=== PATIENT | female | born 1940 | race American Indian/Alaskan Native ===

== ENCOUNTER 2018-09-28 11:50 | Emergency (ER) | payer MEDICARE, OTHER ==
[~2018-09-28] VITALS: Ht 157.5 cm; Wt 73.9 kg
[~2018-09-28 11:50] MED LIST: ATORVASTATIN CA20 MG PO; CLONAZEPAM1 MG PO; COMPOUND TOP; ETODOLAC400 MG PO; FAMOTIDINE20 MG PO; GABAPENTIN100 MG PO; GNP B-COMPLEX1 EACH PO; IBUPROFEN400 MG PO; LEVOTHYROXINE88 MCG PO; MAXZIDE 37.5 M1 EACH PO; MELOXICAM7.5 MG PO; MIRTAZAPINE15 MG PO; QUETIAPINE FUMA50 MG PO; ULTRAM 50MG50 MG PO
--- OUTSIDE RECORDS SUMMARY | 2018-09-28 11:53 | XMS REPORT | Summary of Care ---
Author Author [facility] [place] Organization [facility] [place] Address Unknown Phone Unavailable Encounter [facility] Encntr_alisha(FIN) [id number] Date(s): 07/08/15 - 07/08/15 [facility] [place] [address] [place], [place] [address] [phone] Discharge Disposition: Home Attending Physician: Eliel Valerio MD Vital Signs No data available for this section Problem List Condition Effective Dates Status Health Status Informant Cervical 04/28/15 Active radiculopathy1 Cervical spondylosis 04/26/15 Active without myelopathy2 Lumbar spondylosis3 04/26/15 Active 1Data migrated from [employer] on 06/21/15. 2Data migrated from [employer] on 06/21/15. 3Data migrated from [employer] on 06/21/15. Allergies, Adverse Reactions, Alerts Substance Reaction Severity Status Keflex Active NKDA Active topiramate1 Active 1Data migrated from [employer] on 06/20/15. Originally documented as TOPAMAX. Medications No data available for this section Results No data available for this section Immunizations No data available for this section Procedures No data available for this section Social History No data available for this section Assessment and Plan No data available for this section
--- OUTSIDE RECORDS SUMMARY | 2018-09-28 11:53 | XMS REPORT | Summary of Care ---
Author Organization Unknown Address Unknown Phone Unavailable Encounter [facility] Encntr_nyasia([facility]) [id number] Date(s): 01/10/15 - 01/10/15 [facility] Outpatient Imaging - [address] [address] [phone] Discharge Disposition: Home Physician Attending: Physician, Non Associated MD Vital Signs No data available for this section Problem List No data available for this section Allergies, Adverse Reactions, Alerts Substance Reaction Severity Status Keflex Active NKDA Active Medications No data available for this section Results No data available for this section Immunizations No data available for this section Procedures No data available for this section Social History No data available for this section Assessment and Plan No data available for this section
--- OUTSIDE RECORDS SUMMARY | 2018-09-28 11:53 | XMS REPORT | CCD ---
Author Author Auto Generated Organization [facility] Address Unknown Phone Unavailable Care Team Providers Care Refinery Process Engineer Name Role Phone Deepak Hardeno Drew RP Allergies, Adverse Reactions, Alerts Substance Reaction Status Keflex Active NKDA Active Medications Medication Instructions Start Date End Date Status pneumococcal 0.5 ml, Route: IM, Drug Form: INJ, 01/26/2010 01/26/2010 Completed 23-valent vaccine Start date: 01/26/10 9:00:00, Stop date: 01/26/10 9:00:00 Immunizations Vaccine Date Status pneumococcal 23-valent vaccine 01/26/2010 Not Done Vital Signs Most recent to oldest [Reference Range]: 1 Height 153.67 cm (07/18/2012 09:45:00) Weight 97.273 kg (07/18/2012 09:45:00)
--- OUTSIDE RECORDS SUMMARY | 2018-09-28 11:53 | XMS REPORT | CCD ---
Author Author Auto Generated Organization [facility] Address Unknown Phone Unavailable Care Team Providers Care Outdoor Emergency Care Technician Name Role Phone Deepak Hardentere Russell RP Allergies, Adverse Reactions, Alerts Substance Reaction Status NKDA Active Medications Medication Instructions Start Date End Date Status pneumococcal 0.5 ml, Route: IM, Drug Form: INJ, 01/26/2010 01/26/2010 Completed 23-valent vaccine Start date: 01/26/10 9:00:00, Stop date: 01/26/10 9:00:00 Immunizations Vaccine Date Status pneumococcal 23-valent vaccine 01/26/2010 Not Done Vital Signs Most recent to oldest [Reference Range]: 1 Height 157.48 cm (10/11/2011 10:44:00) Weight 72.727 kg (10/11/2011 10:44:00)
--- OUTSIDE RECORDS SUMMARY | 2018-09-28 11:53 | XMS REPORT | Continuity of Care Document ---
Author Author Anya acosta [facility], [place] Interface Address Unknown Phone Unavailable Problems Problem Status Onset Date Classification Date Reported Comments Source Pain in left hip 01/11/2018 04/14/2018 [place]OCELYN [place] LUMBAR SPONDYLOSIS Active 02/02/2016 [facility] UNK Active 08/03/2015 [facility] V76.12 - SCREEN MAMMOGRA Active 06/28/2015 OP[facility] [place] Cervical radiculopathy<sup>1</sup> Active 04/28/2015 Problem 04/14/2018 Data migrated from Toptal on 06/21/15. [facility] Cervical spondylosis without myelopathy<sup>2</sup> Active 04/26/2015 Problem 04/14/2018 Data migrated from Doorbot[employer] on 06/21/15. [facility] Lumbar spondylosis<sup>3</sup> Active 04/26/2015 Problem 04/14/2018 Data migrated from Toptal on 06/21/15. [facility] 723.[facility] - BRACHIAL NEURIT Active 12/28/2014 [place]ELYN [place] RADICULOPATHY Active 06/08/2013 [facility] CERVICAL AND LUMBAR RADICULOPATHY Active 07/14/2012 [facility] CERVICAL AND LUMBAR RADIC Active 07/11/2012 [facility] 723.4 724.4 Active 10/28/2010 [facility] CERVICAL LUMBAR RADICULOPATHY Active 10/28/2010 [facility] Anxiety Active Problem 04/14/2018 [facility] COPD Active Problem 04/14/2018 [facility] HTN - Hypertension Active Problem 04/14/2018 [facility] Hypothyroid Active Problem 04/14/2018 [facility] Neck pain Active Problem 04/14/2018 [facility] Ob[facility] Active Problem 04/14/2018 [facility] Degeneration of cervical intervertebral disc Active Problem 04/16/2017 Eric Benoit Cervical spondylosis without myelopathy Active Problem 04/16/2017 Eric Benoit Brachial neuritis or radiculitis nos. Active Problem 04/16/2017 Eric Benoit Long-term use of other medications - High Risk Active Problem 04/16/2017 Eric Benoit Lumbar radiculopathy Active Problem 04/16/2017 Eric Benoit Degeneration of cervical intervertebral disc Active Problem 04/16/2017 Eric Benoit Cervical radiculopathy Active Problem 04/16/2017 Eric Benoit Chronic pain syndrome Active Problem 04/16/2017 Eric Benoit Postlaminectomy syndrome, cervical region Active Problem 04/16/2017 Eric Benoit Cervical spondylosis without myelopathy Active Problem 04/16/2017 Eric Benoit Spondylosis without myelopathy or radiculopathy, cervical region Active Problem 04/16/2017 Eric Benoit Brachial neuritis Active Diagnosis 11/16/2016 Eric Benoit BRACHIAL NEURITIS NOS Active [facility] LUMBOSACRAL NEURITIS NOS Active [facility] SPIN STEN,LUMBR WO DANIEL Active [facility] CERVICAL RADICULOPATHY Active [facility] OTH SPONDYLOSIS W RADICULOPATHY, SACR/SA Active [facility] Medications Medication Details Route Status Patient Instructions Ordering Provider Order Date Source Acetaminophen-Codeine #3 1 tablet as needed Orally Active 300- 30 MG Orally daily PRN Moraima 11/15/2016 Eric Benoit Tramadol HCl as directed Orally Active 50 MG Orally BID PRN Moraima 11/15/2016 Eric Benoit Calcium Chloride 0.0014 MEQ/ML / Potassium Chloride 0.004 MEQ/ML / Sodium Chloride 0.103 MEQ/ML / Sodium Lactate 0.028 MEQ/ML Injectable Solution 1,000 mL, Rate: 25 ml/hr, Infuse over: 40 hr, Route: IV, Dosing Weight 77.364 kg, Total Volume: 1,000, Start date: 08/05/15 8:49:00, Duration: 30 day, Stop date: 09/04/15 8:48:00 Inactive 08/05/2015 [facility] clonazePAM 1 mg oral tablet 1 mg=1 tab, PO, BID, # 60 tab, 0 Refill(s) Active 08/04/2015 [facility] levothyroxine 88 mcg (0.088 mg) oral capsule 88 microgram=1 cap, PO, Daily, # 30 cap, 3 Refill(s) Active 08/04/2015 [facility] Hydrochlorothiazide / Triamterene 1 tab, PO, Daily, # 15 tab, 0 Refill(s) Active 08/04/2015 [facility] gabapentin 100 MG Oral Capsule 100 mg=1 cap, PO, TID, # 90 cap, 1 Refill(s) Active 08/04/2015 [facility] etodolac 400 mg oral tablet 400 mg=1 tab, PO, BID, # 180 tab, 0 Refill(s) Active 08/04/2015 [facility] Vitamin D 50,000 IntlUnit, PO, QSat, Substitution Allowed PO Active 06/16/2013 [facility] tramadol 50 mg oral tablet 50 mg, 1 tab, PO, Q6H, PRN, 40 tab, Pain, Substitution Allowed, TAB PO Active 06/16/2013 [facility] carisoprodol 350 mg oral tablet 350 mg, 1 tab, PO, TID, 30 tab, Substitution Allowed, TAB PO Active 06/16/2013 [facility] methocarbamol 750 mg oral tablet 750 mg, 1 tab, PO, BID, 42 tab, Substitution Allowed, TAB PO Active 06/16/2013 [facility] hydrochlorothiazide-triamterene 25 mg-37.5 mg oral capsule 1 cap, PO, Daily, 30 cap, Substitution Allowed, Maintenance, CAP PO Active 06/16/2013 [facility] fluoxetine 40 mg oral capsule 40 mg, 1 cap, PO, Daily, 30 cap, Substitution Allowed, CAP PO Active 06/16/2013 [facility] mirtazapine 30 mg oral tablet 30 mg, 1 tab, PO, Bedtime, 30 tab, Substitution Allowed, TAB PO Active 06/16/2013 [facility] levothyroxine 75 mcg (0.075 mg) oral tablet 75 microgram, 1 tab, PO, Daily, 30 tab, Substitution Allowed, TAB PO Active 06/16/2013 [facility] ibuprofen 800 mg oral tablet 800 mg, PO, Q8H, PRN, Take with food, 30 tab, Pain, Substitution AllowedTake with food PO Active 06/16/2013 [facility] clonazepam 0.5 mg oral tablet 0.5 mg, 1 tab, PO, TID, Substitution Allowed, TAB PO Active 06/16/2013 [facility] [place] 10/325 oral tablet 1 tab, PO, Q4H, PRN, 24 tab, for pain, Substitution Allowed, Maintenance PO Active 06/16/2013 [facility] Saline Flush 0.9% 5 ml, Route: IVP, Drug Form: INJ, Dosing Weight 97.273, kg, Q12H, Start date: 06/16/13 9:00:00, Duration: 30 day, Stop date: 07/15/13 21:00:00 IVP No Longer Active [facility] 06/16/2013 [facility] Saline Flush 0.9% 5 ml, Route: IVP, Drug Form: INJ, Dosing Weight 97.273, kg, PRN, PRN Line Flush, Start date: 06/16/13 8:52:00, Duration: 30 day, Stop date: 07/16/13 8:51:00 IVP No Longer Active [facility] 06/16/2013 [facility] pneumococcal 23-valent vaccine 0.5 ml, Route: IM, Drug Form: INJ, Start date: 01/26/10 9:00:00, Stop date: 01/26/10 9:00:00 IM No Longer Active SYSTEM 01/26/2010 [facility] Gabapentin TAKE 1 CAPSULE BY MOUTH 3 TIMES A DAY NA Active 100 MG [facility] Eric Benoit Tramadol HCl 1 tablet as needed Orally Active 50 MG Orally every 6 hrs [facility] Eric Benoit Zanaflex 1 capsule as needed Orally Active 2 MG Orally BID [facility] Eric Benoit Clonazepam 1 tablet Orally Active 1 MG Orally Twice a day Moraimapallavi Benoit Levothyroxine Sodium 1 tablet Orally Active 88 mg Orally Once a day Moraimacase Benoit Quetiapine Fumarate 1 tablet at bedtime Orally Active 50 MG Orally Once a day Moraima Eric Benoit Fluoxetine HCl 1 capsule in the morning Orally Active 40 MG Orally Once a day Moraima Eric Benoit Mirtazapine 1 tablet before bedtime in the evening Orally Active 15 MG Orally Once a day Moraima Eric Benoit Etodolac 1 tablet Orally Active 400 MG Orally Twice a day Moraimacase Benoit Atorvastatin Calcium 1 tablet Orally Active 20 MG Orally Once a day Moraima Reyes Benoit Triamterene-HCTZ 1 tablet in the morning Orally Active 37.5-25 MG Orally Once a day Moraima Eric Benoit Lidoderm 1 patch to intact skin remove after 12 hours Externally Active 5 % Externally Once a day Moraima Benoit Allergies, Adverse Reactions, Alerts Substance Category Reaction Severity Reaction type Status Date Reported Comments Source topiramate<sup>1</sup> Assertion Drug allergy Active 04/26/2015 Data migrated from Toptal on 06/20/15. Originally documented as TOPAMAX. JOCELYN Porter Keflex Assertion Drug allergy Active [facility] Immunizations Immunization Date Given Site Status Last Updated Comments Source pneumococcal 23-valent vaccine 01/26/2010 Not Given [facility] Results Order Name Results Value Reference Range Date Interpretation Comments Source Hip 2/3 views uni w pelvis DX Hip 2/3 views uni w pelvis DX EXAM: Hip 2/3 views uni w pelvis DX HISTORY: - M25.552 Pain in left hip COMPARISON: None AP pelvis and AP and lateral views of the left hip. FINDINGS: Left hip arthroplasty projects in expected position. Mild heterotopic ossification noted along the medial proximal femur. No fracture is seen. Mild lumbosacral degenerative change. IMPRESSION: No acute abnormality. 01/06/2018 - - Read by: Wilmer Laws MD Dictated Date/time: 01/06/18 16:02 Electronically Signed by: Wilmer Laws MD 01/06/18 16:04 FINAL REPORT JOCELYN Porter Spine lumbar wo contrast MRI Spine lumbar wo contrast MRI Study: Spine lumbar wo contrast MRI 02/14/2016 7:15 PM CDT Patient Name: KRYSTAL STEPHEN MR: [id number] : 1940; Age: 75 years y/o Female Ordering Physician: Chris Barone MD Clinical Indication: Chronic lumbar pain. Multiple previous surgeries. Comparison: 01/10/2015. TECHNIQUE: Multiplanar T1, T2, and STIR weighted noncontrast MRI of the lumbar spine was performed on the 1.5 Nehal magnet. FINDINGS: ALIGNMENT AND GENERAL ASSESSMENT: Due to technical errors during acquisition, cross reference lines are not available during this examination. Five lumbar type vertebral bodies are assumed for purpose of this dictation with conus medullaris termination at T12-L1.Predominantly mild to moderate lumbar spondylosis is present with severe spondylosis at L3-L4 manifest by intervertebral disc space narrowing, marginal osteophytes, endplate degenerative changes/edema, and mild disc bulge. Multilevel mildly narrowed and desiccated intervertebral disks with scattered minimal marginal osteophytes and disc bulges are seen at the remaining lumbar intervertebral levels. Moderate facet arthrosis and ligamentum flavum hypertrophy greatest in the lower lumbar spine. Postoperative change of laminectomy is seen at L4-L5. Grade 1 retrolisthesis of L3 on L4. A large hemangioma is seen involving the T12 vertebral body. Small indeterminate lesions in both kidneys likely represent a combination of fluid signal intensity cysts and complex cysts characterized by hyperintense T1 signal. A small 12 mm indeterminate left adrenal gland nodule is present. The paraspinal soft tissues are normal. Stable asymmetric atrophy of the left psoas muscle. DISC SPACES: T12-L1: No significant disc protrusion, spinal canal narrowing, or neural foraminal narrowing. L1-L2: Minimal diffuse disc bulge causing minimal anterior thecal sac compression without significant spinal canal narrowing. No significant neural foraminal narrowing. No important interval change. L2-L3: Mild diffuse disc bulge coupled with moderate facet arthrosis and ligamentum flavum hypertrophy causing moderate spinal canal narrowing. Moderate left neural foraminal narrowing. Mild right neural foraminal narrowing. No important interval change. L3-L4: Mild to moderate diffuse disc bulge with increasing broad-based left lateral asymmetry coupled with moderate facet arthrosis and ligamentum flavum hypertrophy causing moderate to severe spinal canal narrowing. Severe left neural foraminal narrowing appears mildly increasing. Mild right neural foraminal narrowing is stable. L4-L5: Mild diffuse disc bulge associated with a left paracentral to lateral annular fissure. Moderate to severe facet arthrosis and ligamentum flavum hypertrophy is again seen with stable severe spinal canal narrowing after laminectomy. Moderate bilateral neural foraminal narrowing. L5-S1: Mild diffuse disc bulge causing mild anterior thecal sac compression without spinal canal narrowing. Mild right neural foraminal narrowing. No significant left neural foraminal narrowing. IMPRESSION: 1. Moderate to severe lumbar spondylosis, facet arthrosis, and multilevel disc bulges, and postoperative change of laminectomy at L4-L5. 2. Mild to moderate diffuse disc bulge at L3-L4 associated with increasing broad- based left lateral asymmetry. Moderate to severe spinal canal narrowing is stable. Severe left neural foraminal narrowing is mildly increasing. Mild right neural foraminal narrowing is stable. Stable grade 1 retrolisthesis of L3 on L4. 3. Mild diffuse disc bulge at L4-L5 associated with a left paracentral to left lateral fissure. Moderate to severe facet arthrosis and ligamentum flavum hypertrophy are again seen with laminectomy present. Severe spinal canal narrowing is stable. Moderate bilateral neural foraminal narrowing is stable. 4. Stable mild to moderate spinal canal narrowing and neural foraminal narrowing at maximum in the remaining lumbar spine as above described. 5. Multiple simple to complex cysts suspected in both kidneys. Follow-up ultrasound is recommended. 6. Stable asymmetric left psoas muscle atrophy. SL: [id number] 02/14/2016 - - Read by: Marito Bowman MD Dictated Date/time: 02/15/16 08:34 Electronically Signed by: Marito Bowman MD 02/15/16 12:07 FINAL REPORT [facility] ELECTROLYTES Chloride Lvl 99 meq/L 95 - 109 08/04/2015 [facility] ELECTROLYTES Sodium Lvl 135 meq/L 135 - 145 08/04/2015 [facility] ELECTROLYTES Potassium Lvl 3.2 meq/L 3.5 - 5.1 08/04/2015 [facility] ELECTROLYTES AGAP 8.2 meq/L 10.0 - 20.0 08/04/2015 [facility] ELECTROLYTES CO2 31 meq/L 24 - 32 08/04/2015 [facility] Digital Mammo Screening Dhruv MA Digital Mammo Screening Dhruv MA - DIGITAL MAMMO SCREENING DHRUV MA BILATERAL DIGITAL SCREENING MAMMOGRAM WITH CAD: 07/08/2015 CLINICAL: Routine. Current study was evaluated with a Computer Aided Detection (CAD) system. No prior exams were available for comparison. The tissue of both breasts is almost entirely fat. There are benign calcifications in both breasts. Bilateral breast implants are intact. No significant masses, calcifications, or other findings are seen in either breast. IMPRESSION: BENIGN There is no mammographic evidence of malignancy. A 1 year screening mammogram is recommended. Cresencio callaway/alvaro:07/11/2015 07:18:43 [employer]inder: Jeanie Young [facility] This exam was dictated and interpreted by [id number] for CAROL Kilgore. letter sent: Normal exam Mammogram BI-RADS: 2 Benign 07/08/2015 - - Read by: Cresencio Martinez MD Dictated Date/time: 07/11/15 07:18 Electronically Signed by: Cresencio Martinez MD 07/11/15 07:18 FINAL REPORT CAROL Porter Chest 2 views DX Chest 2 views DX Exam: Two-view chest x-ray Reason for Exam: Malaise and fatigue Comparison Exam: Chest x-ray 01/16/2010 Discussion: Cardiomediastinal silhouette is within normal limits. Both hemidiaphragms well visualized. No pulmonary edema or pleural effusions. No focal lung consolidations. Trachea is midline. Mild multilevel degenerative disc disease seen within the thoracic spine. Postoperative changes seen within the lower cervical spine. Impression: 1. No acute cardiopulmonary abnormalities. No suspicious pulmonary nodules identified. 07/08/2015 - - Read by: Oli Gifford MD Dictated Date/time: 07/08/15 11:57 Electronically Signed by: Oli Gifford MD 07/08/15 11:58 FINAL REPORT CAROL Porter Spine cervical wo contrast CT Spine cervical wo contrast CT CT cervical spine without contrast Comparison: 01/10/2015 MRI exam. Technique: Axial images were obtained without contrast. Sagittal and coronal MPR images were also submitted. The DLP is 870 mGy-cm. Findings: No evidence of acute osseous injury is identified. Mild levocurvature of the cervical spine is present. Retroodontoid partly calcified soft tissue pannus is present, likely due to inflammatory arthritis. C2-C3 mild disc bulge is seen without central canal or foraminal stenosis. C3-C4 minimal grade 1 anterolisthesis with partial disc annulus and nucleus calcification is seen. There is significant right facet osteoarthritis and mild left facet osteoarthritis with moderate to severe right foraminal stenosis and mild left foraminal stenosis. C4-C5 minimal grade 1 anterolisthesis is present with moderate right facet osteoarthritis. Annular calcification is present. Disc osteophyte complex is seen with bilateral UVJ arthrosis, resulting in moderate to severe right foraminal stenosis and moderate left foraminal stenosis. C5-C6 and C6-C7 interbody fusion changes are seen. There is solid fusion at C5-C6. C5-C6 dorsal osteophytes are present. Bilateral moderate foraminal stenosis is present. C6-C7 mild to moderate bilateral foraminal stenosis is present. Dorsal osteophytes are present. C7-T1 significant disc narrowing is seen with anterior and posterior disc osteophyte complexes and mild central canal stenosis. There is moderate to severe left foraminal stenosis and moderate right foraminal stenosis. T1-T2 grade 1 anterolisthesis is present with facet osteoarthritis and moderate left foraminal stenosis. Impression: 1. Multilevel degenerative changes with multilevel degenerative anterolisthesis. 2. Multilevel significant foraminal stenosis present as above. 05/09/2015 - - Read by: Ashok Hay MD Dictated Date/time: 05/09/15 15:09 Electronically Signed by: Ashok Hay MD 05/09/15 16:03 FINAL REPORT JOCELYN Porter Spine lumbar wo contrast MRI Spine lumbar wo contrast MRI MRI LUMBAR SPINE WITHOUT CONTRAST COMPARISON: 02/02/2011 MRI exam. TECHNIQUE: Sagittal T1, sagittal T2 with fat saturation, axial T1 and axial T2 images were obtained. No intravenous gadolinium was given. FINDINGS: The paravertebral soft tissues are normal. Congenital shortened lumbar pedicles are seen. The conus medullaris terminates at the T12-L1 level. T12 centrum hemangioma is stable. T12-L1: Minimal disc bulge without central canal or foraminal stenosis. L1-L2: Development of mild disc bulge is seen with minimal central canal and bilateral foraminal stenosis. L2-L3: Disc desiccation present with more prominent disc bulge compared to 02/02/2011, with disc bulge measuring 3.4 mm. Along with the moderate ligamenta flava redundancy, mild epidural lipomatosis, moderate central canal stenosis is present. There is moderate right foraminal stenosis and mild left foraminal stenosis. L3-L4: Progressive left asymmetric dorsal disc osteophyte complex and grade 1 retrolisthesis measuring 7.5 mm in combination with severe central canal stenosis present. There is progressive severe left foraminal stenosis and moderate right foraminal stenosis. Significant ligamenta flava redundancy is present. L4-L5: Stable disc bulge with scattered annular fissures with the disc bulge measuring 3.2 mm. There is increased ligamenta flava redundancy at both levels with severe central canal stenosis and bilateral lateral recess stenosis with mass effect on the bilateral L5 descending nerve roots. There is stable moderate to severe right foraminal stenosis and moderate left foraminal stenosis. Stable laminectomy changes. L5-S1: Stable mild dorsal disc osteophyte complex without thecal sac stenosis. Stable significant right facet osteoarthritis and mild right foraminal stenosis. Right upper renal pole 1.2 cm probable angiomyolipoma is seen with T1 weighted hyperintense signal, not previously evaluated. There is asymmetric left iliopsoas muscular asymmetric atrophy. IMPRESSION: 1. Multilevel disc degenerative disease and spondylosis. Congenital shortened lumbar pedicles are seen. 2. L2-L3 progressive moderate central canal stenosis and right foraminal stenosis. 3. L3-L4 progressive degenerative changes with severe central canal stenosis and severe left foraminal stenosis. 4. L4-L5 severe central canal and bilateral lateral recess stenosis with mass effect on the bilateral L5 descending nerve roots. Stable moderate to severe bilateral foraminal stenosis. 5. 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 01/10/2015 - - Read by: Ashok Hay MD Dictated Date/time: 01/10/15 16:21 Electronically Signed by: Ashok Hay MD 01/10/15 17:23 FINAL REPORT JOCELYN Porter Spine cervical wo contrast MRI Spine cervical wo contrast MRI MRI CERVICAL SPINE WITHOUT CONTRAST TECHNIQUE: Multiplanar multisequence imaging of the cervical spine was performed without administration of intravenous gadolinium. COMPARISON: No prior exam. FINDINGS: Multilevel disc desiccation is seen. C2-C3: Mild disc bulge is seen with mild ligamenta flava redundancy. No significant central canal or foraminal stenosis. C3-C4: Minimal grade 1 anterolisthesis is seen with right foraminal osteophytes and severe right facet osteoarthritis, with severe right foraminal stenosis. Mild disc bulge is seen with mild ligamenta flava redundancy and mild central canal stenosis. C4-C5: Mild grade 1 anterolisthesis is seen with 3 mm dorsal disc osteophyte complex. Mild central canal stenosis is seen with laminectomy changes. The dorsal disc osteophyte complex minimally indents the anterior cervical cord margin. There is severe right foraminal stenosis with severe right facet osteoarthritis and right foraminal osteophytes. Moderate left foraminal stenosis is present. C5-C6: Interbody fusion is present with approximately 2.8 mm dorsal osteophytes indenting the right anterior cervical cord margin. No significant central canal stenosis due to the laminectomy. Moderate to severe bilateral foraminal stenosis is present. C6-C7: Similar postsurgical changes are seen with mild dorsal disc osteophyte complex measuring approximately 2.8 mm. No central canal stenosis is seen due to the laminectomy. There is mild to moderate bilateral foraminal stenosis. C7-T1: 2.8 mm dorsal disc osteophyte complex is seen with ligament flava redundancy resulting in moderate central canal stenosis and mild indentation of the cervical cord. Severe bilateral foraminal stenosis is present due to prominent foraminal and extraforaminal disc osteophyte complexes. T1-T2 grade 1 anterolisthesis is seen due to facet osteoarthritis and moderate bilateral foraminal stenosis and mild central canal stenosis. The cervical cord signal is unremarkable without MRI evidence of myelopathy. IMPRESSION: 1. Multilevel disc degenerative disease and spondylosis. Multilevel postsurgical changes as above. 2. Multilevel cervical and upper thoracic spine degenerative listhesis. 3. Multilevel mild to moderate central canal stenosis and mild mass effect on the cervical cord. No MRI evidence of cervical cord myelopathy. 4. Multilevel significant foraminal stenosis. 01/10/2015 - - Read by: Ashok Hay MD Dictated Date/time: 01/10/15 16:21 Electronically Signed by: Ashok Hay MD 01/10/15 17:14 FINAL REPORT CAROL Porter Transforaminal Inj LS spine single (DX) Transforaminal Inj LS spine single (DX) Name: KRYSTAL STEPHEN : 1940 Ordering Physician: Vania Harden Fluoroscopically guided bilateral L3 and L4 nerve root blocks/transforaminal epidural steroid injections: Jun 16, 2013 11:27:41 AM Clinical Indication: Lumbar radiculopathy. Comparison Exam: July 18, 2012. Technique: The risks, benefits and alternatives of the procedure were personally discussed in detail with the patient. Emphasis was placed on risks of bleeding, infection, nerve injury, paralysis or post procedural headache. Signed informed consent was obtained. The patient was placed in a prone position on the fluoroscopic table. The patient was given versed and fentanyl iv sedation and monitored thruout the exam. The lower back was prepped and draped with sterile technique. The skin was infiltrated with 1% Lidocaine local anesthesia. 25-gauge needles were placed at the inferior aspects of bilateral L3 and L4 pedicle 6:00 clock positions, with the fluoroscopic image intensifier in an oblique position. Contrast was injected and images obtained to confirm positioning in each nerve root sleeve. 1.5 cc of 0.25% Marcaine and 0.75 cc of 40mg/cc of Kenalog were then injected into each nerve root sleeve. The needles were removed and the sites were dressed with sterile technique. There were no complications during the procedure. The patient tolerated the procedure well. The cervical spine nerve root blocks/transterminal epidural steroid injections were subsequently performed. Two minutes and 40 seconds of fluoroscopic time was used. 35 mGy of exposure was recorded. Fluoroscopic images were saved on PACS. Discharge instructions were given and reviewed with the patient for the procedure and instructions were given to call for any problems. FINDINGS: The spot fluoroscopic images show contrast filling of bilateral L3 and L4 nerve root sleeves. Opinion: 1. Successful bilateral L3 and L4 nerve root blocks/transforaminal epidural steroid injections, as noted above. THANK YOU FOR THIS REFERRAL AND ALLOWING US TO PARTICIPATE IN THE CARE OF THIS PATIENT. SL: 24 06/16/2013 - - Read by: Mateusz Martinez Dictated Date/time: 06/16/13 13:27 Electronically Signed by: Mateusz Martinez MD 06/16/13 13:29 FINAL REPORT [facility] Transforaminal Inj C/T spine Single (DX) Transforaminal Inj C/T spine Single (DX) Name: KRYSTAL STEPHEN : 1940 Ordering Physician: Vania Harden Fluoroscopically guided Bilateral C6 and C7 nerve root blocks/transforaminal epidural steroid injections: Jun 16, 2013 11:27:41 AM CLINICAL INDICATION: RADICULOPATHY COMPARISON EXAM: None. Technique: The risks, benefits and alternatives of the procedure were personally discussed in detail with the patient. Emphasis was placed on risks of bleeding, infection, nerve injury, vertebral artery injury, stroke, paralysis or post procedural headache. Signed informed consent was obtained. The patient was placed in a supine position on the fluoroscopic table. The patient was given versed and fentanyl iv sedation and monitored thruout the exam. Bilateral neck regions were prepped and draped with sterile technique. The skin was infiltrated with 1% Lidocaine local anesthesia. 25 guage needles were placed just anterior to bilateral C6 articulating processes at the posterior aspects of bilateral C5-C6 foramina, with fluoroscopic image intensifier in an oblique position. A tiny amount of contrast material was injected and images obtained to confirm positioning in each nerve root sleeve. .5 cc of 40mg/cc of Kenalog were then injected into each nerve root sleeve. The needle were removed and the sites were dressed with sterile technique. 25 guage needles were placed just anterior to bilateral C7 articulating processes at the posterior aspects of bilateral C6-C7 foramina, with fluoroscopic image intensifier in an oblique position. A tiny amount of contrast material was injected and images obtained to confirm positioning in each nerve root sleeve. .5 cc of 40mg/cc of Kenalog were then injected into each nerve root sleeve. The needle were removed and the sites were dressed with sterile technique. There were no complications during the procedure. The patient tolerated the procedure well. The patient was observed for 60 minutes in radiology recovery and discharged in stable condition. Two minutes and 19 seconds of fluoroscopic time was used. 15 mGy exposure was recorded. Fluoroscopic images were saved on PACS. Discharge instructions were given and reviewed with the patient for the procedure and instructions were given to call for any problems. FINDINGS: The spot fluoroscopic images show contrast filling of bilateral C6 and C7 nerve root sleeves. Opinion: 1. Successful bilateral C6 and C7 nerve root blocks/transforaminal epidural steroid injections, as noted above. THANK YOU FOR THIS REFERRAL AND ALLOWING US TO PARTICIPATE IN THE CARE OF THIS PATIENT. SL: 24 06/16/2013 - - Read by: Mateusz Martinez Dictated Date/time: 06/16/13 13:29 Electronically Signed by: Mateusz Martinez MD 06/16/13 13:33 FINAL REPORT [facility] Vital Signs Vital Sign Value Date Comments Source Weight 178.3 11/15/2016 Eric Benoit Height 62 11/15/2016 Eric Benoit Temperature Oral (F) 98.5 F 11/15/2016 Eric Moraleser Diastolic (mm Hg) 78 11/15/2016 Eric Benoit Systolic (mm Hg) 128 11/15/2016 Eric Benoit Systolic (mm Hg) 131 08/05/2015 [facility] Diastolic (mm Hg) 63 08/05/2015 [facility] Respitory Rate 14 08/05/2015 [facility] Systolic (mm Hg) 128 08/05/2015 [facility] Diastolic (mm Hg) 75 08/05/2015 [facility] Respitory Rate 16 08/05/2015 [facility] Systolic (mm Hg) 114 08/05/2015 [facility] Diastolic (mm Hg) 71 08/05/2015 [facility] Respitory Rate 14 08/05/2015 [facility] Heart Rate 71 08/04/2015 [facility] Temperature Oral (F) 97.3 F 08/04/2015 [facility] Weight 77.364 08/04/2015 [facility] BMI Calculated 31.2 08/04/2015 [facility] Height 157.48 cm 08/04/2015 [facility] Height 157.48 cm 06/16/2013 [place] Weight 62.273 06/16/2013 [place] Height 153.67 cm 07/18/2012 [place] Weight 97.273 07/18/2012 [place] Weight 71.818 07/14/2012 [place] Height 157.48 cm 07/14/2012 [place] Height 157.48 cm 10/11/2011 [place] Weight 72.727 10/11/2011 [facility] Encounters Location Location Details Encounter Type Encounter Number Reason For Visit Attending Provider ADM Date DC Date Status Source [facility] Outpatient [id number] CERVICAL LUMBAR RADICULOPATHY VANIA NATALIIA 10/11/2011 Active [facility] Outpatient [id number] CERVICAL AND LUMBAR RADIC VANIA NATALIIA 07/14/2012 Active [facility] Outpatient [id number] CERVICAL AND LUMBAR RADICULOPATHY VANIA NATALIIA 07/18/2012 Active [facility] CARLOS [id number] RADICULOPATHY VANIA NATALIIA 06/16/2013 06/16/2013 Active [facility] [place] [facility] [id number] Non Physician 01/10/2015 01/11/2015 [facility] [place] [facility] [place] [facility] [id number] Chris Chenh 05/09/2015 05/10/2015 [facility] [place] [facility] OP Therapy Patients [id number] [facility] 05/11/2015 06/10/2015 [facility] [place] [facility] [id number] Eliel Valerio 07/08/2015 07/09/2015 [facility] [place] [facility] OBS Day Surgery [id number] Anibal Valera 08/05/2015 08/05/2015 [facility] Outpatient [id number] LYNDSAY JONESJILLIAN 01/27/2016 Active [facility] Outpatient [id number] [facility] 02/14/2016 02/15/2016 [facility] Outpatient [id number] [facility] 02/28/2016 Active [facility] Sammy Benoit MD POST OP [id number] 11/15/2016 11/15/2016 Eric Benoit [facility] [place] [facility] [id number] Piyush Reyes 01/06/2018 01/07/2018 [facility] [place] Procedures Procedure Code Date Perfomer Comments Source Epidural steroid injection<sup>1</sup> [id number] 06/16/2013 cervical [facility] [place] Epidural steroid injection<sup>1</sup> [id number] 06/16/2013 cervical [facility] Injection of cervical spinal nerve root using computed tomography guidance [id number] 07/18/2012 [facility] [place] Injection of cervical spinal nerve root using computed tomography guidance [id number] 07/18/2012 [facility] Breast reduction<sup>2</sup> 18414296 x2 [facility] [place] Carpal tunnel release<sup>3</sup> 98500874 bilateral [facility] [place] CEIOL - Cataract extraction and insertion of intraocular lens 431716515 [facility] [place] Cervical spinal fusion by anterior technique 51102041 [facility] [place] Hip replacement<sup>4</sup> 225175907 left [facility] [place] Ulnar nerve decompression<sup>5</sup> 128247763 bilateral [facility] [place] Breast reduction<sup>2</sup> 84368346 x2 [facility] Carpal tunnel release<sup>3</sup> 26204279 bilateral [facility] CEIOL - Cataract extraction and insertion of intraocular lens 898880369 [facility] Cervical spinal fusion by anterior technique 37238835 [facility] Hip replacement<sup>4</sup> 316858358 left [facility] Ulnar nerve decompression<sup>5</sup> 916272127 bilateral [facility]
--- OUTSIDE RECORDS SUMMARY | 2018-09-28 11:53 | XMS REPORT | Summary of Care ---
Author Author [facility] Address Unknown Phone Unavailable Encounter HQ Encntr_alisha(FIN) [id number] Date(s): 05/11/15 - 06/09/15 [facility] Discharge Disposition: Home Attending Physician: Chris Barone MD Vital Signs No data available for [...]
--- OUTSIDE RECORDS SUMMARY | 2018-09-28 11:53 | XMS REPORT | Summary of Care ---
Author Author [facility] [place] Organization [facility] [place] Address Unknown Phone Unavailable Encounter HQ Encntr_alias(FIN) [id number] Date(s): 05/09/15 - 05/09/15 [facility] [place] [address], [place] [address] [phone] Discharge Disposition: Home Attending Physician: Chris Barone [...]
--- OUTSIDE RECORDS SUMMARY | 2018-09-28 11:53 | XMS REPORT | CCD ---
Author Author Auto Generated Organization [facility] Address Unknown Phone Unavailable Care Team Providers Care Tariff Inspector Name Role Phone Deepak Hardentere Russell RP [...] oldest [Reference Range]: 1 Height 157.48 cm (07/14/2012 10:32:00) Weight 71.818 kg (07/14/2012 10:32:00)
--- OUTSIDE RECORDS SUMMARY | 2018-09-28 11:53 | XMS REPORT | CCD ---
Author Author Auto Generated Organization [facility] Address Unknown Phone Unavailable Care Team Providers Care Stock Unloader Name Role Phone Urbano Harden RP Allergies, Adverse Reactions, Alerts Substance Reaction Status Keflex Active NKDA Active Medications Medication Instructions Start Date End Date Status Saline Flush 0.9% 5 ml, Route: IVP, Drug Form: INJ, 06/16/2013 06/16/2013 Discontinued Dosing Weight 97.273, kg, PRN, PRN Line Flush, Start date: 06/16/13 8:52:00, Duration: 30 day, Stop date: 07/16/13 8:51:00 Saline Flush 0.9% 5 ml, Route: IVP, Drug Form: INJ, 06/16/2013 06/16/2013 Discontinued Dosing Weight 97.273, kg, Q12H, Start date: 06/16/13 9:00:00, Duration: 30 day, Stop date: 07/15/13 21:00:00 [place] 10/325 oral 1 tab, PO, Q4H, PRN, 24 tab, for 06/16/2013 Ordered tablet pain, Substitution Allowed, Maintenance fluoxetine 40 mg 40 mg, 1 cap, PO, Daily, 30 cap, 06/16/2013 Ordered oral capsule Substitution Allowed, CAP mirtazapine 30 mg 30 mg, 1 tab, PO, Bedtime, 30 tab, 06/16/2013 Ordered oral tablet Substitution Allowed, TAB carisoprodol 350 mg 350 mg, 1 tab, PO, TID, 30 tab, 06/16/2013 Ordered oral tablet Substitution Allowed, TAB levothyroxine 75 mcg 75 microgram, 1 tab, PO, Daily, 30 06/16/2013 Ordered (0.075 mg) oral tab, Substitution Allowed, TAB tablet pneumococcal 0.5 ml, Route: IM, Drug Form: INJ, 01/26/2010 01/26/2010 Completed 23-valent vaccine Start date: 01/26/10 9:00:00, Stop date: 01/26/10 9:00:00 methocarbamol 750 mg 750 mg, 1 tab, PO, BID, 42 tab, 06/16/2013 Ordered oral tablet Substitution Allowed, TAB Vitamin D 50,000 IntlUnit, PO, QSat, 06/16/2013 Ordered Substitution Allowed ibuprofen 800 mg 800 mg, PO, Q8H, PRN, Take with 06/16/2013 06/26/2013 Ordered oral tablet food, 30 tab, Pain, Substitution Allowed Take with food clonazepam 0.5 mg 0.5 mg, 1 tab, PO, TID, 06/16/2013 Ordered oral tablet Substitution Allowed, TAB hydrochlorothiazide- 1 cap, PO, Daily, 30 cap, 06/16/2013 Ordered triamterene 25 Substitution Allowed, Maintenance, mg-37.5 mg oral CAP capsule tramadol 50 mg oral 50 mg, 1 tab, PO, Q6H, PRN, 40 tab, 06/16/2013 06/26/2013 Ordered tablet Pain, Substitution Allowed, TAB Immunizations Vaccine Date Status pneumococcal 23-valent vaccine 01/26/2010 Not Done Vital Signs Most recent to oldest [Reference Range]: 1 Height 157.48 cm (06/16/2013 08:52:00) Weight 62.273 kg (06/16/2013 08:52:00)
--- OUTSIDE RECORDS SUMMARY | 2018-09-28 11:53 | XMS REPORT | Clinical Summary ---
Author Author [facility] Address Unknown Phone Unavailable Care Team Providers Care Microsoft Net Developer Name Role Phone Belkis Kat MD PCP Allergies Comments Active Allergy Reactions Severity Noted Date Baclofen 04/24/2016 Medications End Date Status Medication Sig Dispensed Refills Start Date Active traMADol (ULTRAM) 50 mg Take 1 tablet 0 tablet by mouth 6 every 6 (six) hours as needed. Active vit B cmplx 3-FA-vit Take by 0 C-biotin 1-60-300 mouth. mg-mg-mcg tablet Active atorvastatin (LIPITOR) 20 TAKE 1 TABLET 90 tablet 0 09/14/201 MG tablet (20 MG TOTAL) 6 BY MOUTH DAILY FOR 90 DAYS. Active amLODIPine (NORVASC) 10 Take 1 tablet 3 mg tablet by mouth 6 daily. Active cyclobenzaprine Take 10 mg by 0 (FLEXERIL) 10 mg tablet mouth 3 (three) times a day as needed for muscle spasms. Active ULTRAM 50 mg tablet 0 7 Active levothyroxine (SYNTHROID, TAKE 1 TABLET 90 tablet 1 LEVOXYL) 88 mcg tablet BY MOUTH 7 EVERY MORNING FOR 90 DAYS. Active atorvastatin (LIPITOR) 20 TAKE 1 TABLET 90 tablet 0 02/27/201 MG tablet BY MOUTH 7 DAILY FOR 90 DAYS. Active metoprolol tartrate TAKE 1 TABLET 180 tablet 0 (LOPRESSOR) 25 mg tablet BY MOUTH 2 7 TIMES A DAY FOR 30 DAYS. Active famotidine (PEPCID) 20 MG TAKE 1 TABLET 60 tablet 3 tablet BY MOUTH 7 TWICE A DAY Active triamterene-hydrochloroth TAKE 1 TABLET 30 tablet 0 iazid (MAXZIDE-25) BY MOUTH 7 37.5-25 mg per tablet DAILY FOR 30 DAYS. Active gabapentin (NEURONTIN) Take 1 60 capsule 0 300 mg capsule capsule (300 7 mg total) by mouth 3 (three) times a day for 30 days. Active Problems Problem Noted Date Left lower quadrant pain 11/02/2016 Pruritus of vulva 11/02/2016 Rash 06/29/2016 Anxiety 01/14/2015 Overview: Last Assessment & Plan: Anxiety is under control. Will continue with prozac 40 mg daily. Patient as well to take Remeron Neck pain 01/14/2015 Overview: Last Assessment & Plan: Results of MRI discussed with the patient. She has several areas of neuro foraminal stenosis. Patient will need as well surgical evaluation. Patient to use heat therapy and stretching exercises. Massage therapy may also be helpful. Muscle relaxants as prescribed and NSAID's as prescribed as well. Patient to use his TENS unit as well. Etodolac for NSAID. Patient may use as well compound cream. Low back pain 01/14/2015 Overview: Last Assessment & Plan: Findings of the MRI discussed with the patient. She has central canal stenosis at 2 levels mainly L3/L4 and L4/L5. Patient will need surgical evaluation. Patient to use heat therapy and stretching exercises. Massage therapy may also be helpful. Muscle relaxants as prescribed and NSAID's as prescribed as well. Patient to use his TENS unit as well. Patient to use [place] 10/325 po QID prn for pain control. Etodolac as NSAID. Will provide script for Flexeril because insurance is not approving medication. Immunizations Name Dates Previously Given Next Due FLUZONE HIGH-DOSE PF 07/05/2016 Pneumococcal Conjugate 08/28/2016 13-Valent Family History Medical History Relation Name Comments No Known Problems Daughter Lung cancer Father Hypertension Mother No Known Problems Son Relation Name Status Comments Brother murdered (Age 20) Brother Alive Daughter Alive Father lung cancer (Age 88) Mother Sister Alive Son car accident (Age 27) Son Alive Social History Date Tobacco Use Types Packs/Day Years Used Quit: 03/28/2010 Former Smoker Cigarettes 1 40 Smokeless Tobacco: Never Used Alcohol Use Drinks/Week oz/Week Comments Yes 7 Standard 4.2 drinks or equivalent Sex Assigned at Date Recorded Not on file Industry Job Start Date Occupation Not on file Not on file Not on file Travel End Travel History Travel Start No recent travel history available. Last Filed Vital Signs Not on file Plan of Treatment Health Maintenance Due Date Last Done Comments SHINGRIX VACCINE (1 of 2) 1989 ZOSTER VACCINE 1999 PNEUMOCOCCAL 2004 POLYSACCHARIDE VACCINE AGE 65 AND OVER INFLUENZA VACCINE 05/28/2018 07/05/2016 PNEUMOCOCCAL-13 Completed 08/28/2016 Results Not on fileafter 09/27/2017 Insurance Payer Benefit Subscriber ID Type Phone Address Plan / Group [facility] - xxxxxxxxx HMO [facility] Advance Directives Patient has advance care planning documents on file. For more information, jamie eckert contact: Nir Browne [phone] [facility] [place] [address]
--- OUTSIDE RECORDS SUMMARY | 2018-09-28 11:54 | XMS REPORT ---
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 Active Problem Cervical radiculopathy M54.12 Active Problem Chronic pain syndrome 338.4 Active Problem Postlaminectomy syndrome, cervical region 722.81 Active Problem Cervical spondylosis without myelopathy M47.812 Active Problem Spondylosis without myelopathy or radiculopathy, cervical region M47.812 Active Assessment Lumbar radiculopathy M54.16 Active Assessment Cervical spondylosis without myelopathy M47.812 Active Assessment Brachial neuritis M54.12 Active Assessment Cervical radiculopathy M54.12 Active Assessment Degeneration of cervical intervertebral disc M50.30 Active Problem Long-term (current) use of other medications - High Risk V58.69 Active Medications Medication Code System Code Instructions Start Date End Date Status Dosage Acetaminophen-Codeine #[address] [facility] [address]-91 300-30 MG Orally daily PRN Nov 15, 2016 March 15, 2017 Active 1 tablet as needed Gabapentin [facility] 37158293510 100 MG Active TAKE 1 CAPSULE BY MOUTH 3 TIMES A DAY Tramadol HCl [facility] [address]-02 50 MG Orally every 6 hrs Active 1 tablet as needed Zanaflex [facility] [address]-25 2 MG Orally BID Active 1 capsule as needed Tramadol HCl [facility] [address]-61 50 MG Orally BID PRN Nov 15, 2016 March 15, 2017 Active as directed Clonazepam [facility] [address]-15 1 MG Orally Twice a day Active 1 tablet Levothyroxine Sodium [facility] [address]-24 88 mg Orally Once a day Active 1 tablet Quetiapine Fumarate [facility] [address]-29 50 MG Orally Once a day Active 1 tablet at bedtime Fluoxetine HCl [facility] [address]-41 40 MG Orally Once a day Active 1 capsule in the morning Mirtazapine [facility] [address]-88 15 MG Orally Once a day Active 1 tablet before bedtime in the evening Etodolac [facility] [address]-64 400 MG Orally Twice a day Active 1 tablet Atorvastatin Calcium [facility] [address]-08 20 MG Orally Once a day Active 1 tablet Triamterene-HCTZ [facility] [address]-76 37.5-25 MG Orally Once a day Active 1 tablet in the morning Lidoderm [facility] [address]-60 5 % Externally Once a day Active 1 patch to intact skin remove after 12 hours Social History Social History Element Qualifiers Date Reported Tobacco Use: . Are you a:: never smoker Nov 15, 2016 Pets: none. cats: dogs: Nov 15, 2016 Marital Status: . Nov 15, 2016 Diet: no. Nov 15, 2016 Caffeine: yes. frequency: Nov 15, 2016 Exercise: no. Nov 15, 2016 Alcohol: no. Nov 15, 2016 Travel outside [place]: yes. Nov 15, 2016 Occup. exposure: none. Nov 15, 2016 Occupation: unemployed. Nov 15, 2016 Vital Signs Date/Time: Nov 15, 2016 Weight 178.3 lbs Height 62 in Temperature 98.5 F Blood Pressure Diastolic 78 mm Hg Blood Pressure Systolic 128 mm Hg Summary Purpose eClinicalWorks Submission
--- OUTSIDE RECORDS SUMMARY | 2018-09-28 11:54 | XMS REPORT | Summary of Care ---
Author Author [facility] Organization [facility] Address Unknown Phone Unavailable Encounter RITA Parker(AKSHAT) [id number] Date(s): 08/05/15 - 08/05/15 [facility] [address] [place] [address]- [phone] Discharge Disposition: Home Attending Physician: Anibal Valera MD Referring Physician: Anibal Valera MD Vital Signs 1 2 3 Most recent to oldest [Reference Range]: 157.48 cm (08/04/15 8:34 AM) Height 1 2 3 Most recent to oldest [Reference Range]: 97.3 DegF (08/04/15 9:24 AM) Temperature Oral [96.4-99.1 DegF] 1 2 3 Most recent to oldest [Reference Range]: 131/63 mmHg (08/05/15 10:30 AM) 128/75 mmHg (08/05/15 10:15 AM) 114/71 mmHg (08/05/15 10:00 AM) Blood Pressure [90-140/60-90 mmHg] 1 2 3 Most recent to oldest [Reference Range]: 14 BRMIN (08/05/15 10:30 AM) 16 BRMIN (08/05/15 10:15 AM) 14 BRMIN (08/05/15 10:00 AM) Respiratory Rate [14-20 BRMIN] 1 2 3 Most recent to oldest [Reference Range]: 71 bpm (08/04/15 9:24 AM) Peripheral Pulse Rate [60-100 bpm] 1 2 3 Most recent to oldest [Reference Range]: 77.364 kg (08/04/15 8:34 AM) Weight 1 2 3 Most recent to oldest [Reference Range]: 31.2 m2 (08/04/15 8:34 AM) Body Mass Index Problem List Condition Effective Dates Status Health Status Informant Anxiety(Confirmed) Active Cervical 04/28/15 Active radiculopathy1 Cervical spondylosis 04/26/15 Active without myelopathy2 COPD(Confirmed) Active HTN - Active Hypertension(Confirm ed) Hypothyroid(Confirme Active d) Lumbar spondylosis3 04/26/15 Active Neck pain(Confirmed) Active 1Data migrated from [employer] on 06/21/15. 2Data migrated from [employer] on 06/21/15. 3Data migrated from [employer] on 06/21/15. Allergies, Adverse Reactions, Alerts Substance Reaction Severity Status Keflex Active NKDA Active topiramate1 Active 1Data migrated from [employer] on 06/20/15. Originally documented as TOPAMAX. Medications clonazePAM 1 mg oral tablet 1 mg=1 tab, PO, BID, # 60 tab, 0 Refill(s) Start Date: 08/04/15 Status: Ordered etodolac 400 mg oral tablet 400 mg=1 tab, PO, BID, # 180 tab, 0 Refill(s) Start Date: 08/04/15 Status: Ordered gabapentin 100 mg oral capsule 100 mg=1 cap, PO, TID, # 90 cap, 1 Refill(s) Start Date: 08/04/15 Status: Ordered hydrochlorothiazide-triamterene 1 tab, PO, Daily, # 15 tab, 0 Refill(s) Start Date: 08/04/15 Status: Ordered Lactated Ringers Injection IV 1000 mL 1,000 mL, Rate: 25 ml/hr, Infuse over: 40 hr, Route: IV, Dosing Weight 77.364 kg , Total Volume: 1,000, Start date: 08/05/15 8:49:00, Duration: 30 day, Stop date : 09/04/15 8:48:00 Start Date: 08/05/15 Stop Date: 08/05/15 Status: Discontinued levothyroxine 88 mcg (0.088 mg) oral capsule 88 microgram=1 cap, PO, Daily, # 30 cap, 3 Refill(s) Start Date: 08/04/15 Status: Ordered Results ELECTROLYTES Most recent to 1 oldest [Reference Range]: Sodium Lvl [135-145 135 mEq/L mEq/L] (08/04/15 8:55 AM) Potassium Lvl 3.2 mEq/L [3.5-5.1 mEq/L] *LOW* (08/04/15 8:55 AM) Chloride Lvl [95-109 99 mEq/L mEq/L] (08/04/15 8:55 AM) CO2 [24-32 mEq/L] 31 mEq/L (08/04/15 8:55 AM) AGAP [10.0-20.0 8.2 mEq/L mEq/L] *LOW* (08/04/15 8:55 AM) Immunizations No data available for this section Procedures Procedure Date Related Diagnosis Body Site Epidural steroid injection1 06/16/13 Injection of cervical spinal nerve root using 07/18/12 computed tomography guidance Breast reduction2 Carpal tunnel release3 CEIOL - Cataract extraction and insertion of intraocular lens Cervical spinal fusion by anterior technique Hip replacement4 Ulnar nerve decompression5 1cervical 2x2 3bilateral 4left 5bilateral Social History Social History Type Response Alcohol Current, Frequency: Daily.1 Smoking Status Former smoker; Exposure to Tobacco Smoke None; Cigarette Smoking Last 365 Days No; Reg Smoking Cessation Counseling No 11-2 drinks per day Assessment and Plan No data available for this section
--- OUTSIDE RECORDS SUMMARY | 2018-09-28 11:54 | XMS REPORT | Summary of Care ---
Author Author [facility] Organization [facility] Address Unknown Phone Unavailable Encounter RITA Parker(AKSHAT) [id number] Date(s): 02/14/16 - 02/14/16 [facility] [address] [place] [address]- [phone] Discharge Disposition: Home Attending Physician: Chris Barone MD Referring Physician: Chris Barone MD Vital Signs No data available for this section Problem List Condition Effective Dates Status Health Status Informant Anxiety(Confirmed) Active Cervical 04/28/15 Active radiculopathy1 Cervical spondylosis 04/26/15 Active without myelopathy2 COPD(Confirmed) Active HTN - Active Hypertension(Confirm ed) Hypothyroid(Confirme Active d) Lumbar spondylosis3 04/26/15 Active Neck pain(Confirmed) Active Obesity(Confirmed) Active 1Data migrated from [employer] on [...]
--- OUTSIDE RECORDS SUMMARY | 2018-09-28 11:54 | XMS REPORT ---
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 723.4 Active Problem Long-term (current) use of other medications - High Risk V58.69 Active Problem Lumbar radiculopathy M54.16 Active Problem Degeneration of cervical intervertebral disc M50.30 Active Problem Cervical radiculopathy M54.12 Active Problem Chronic pain syndrome 338.4 Active Problem Postlaminectomy syndrome, cervical region 722.81 Active Problem Cervical spondylosis without myelopathy M47.812 Active Problem Spondylosis without myelopathy or radiculopathy, cervical region M47.812 Active Medications No Known Medications Results No Known Results Summary Purpose [employer] Submission
--- OUTSIDE RECORDS SUMMARY | 2018-09-28 11:54 | XMS REPORT | Summary of Care ---
Author Author [facility] Organization [facility] Address Unknown Phone Unavailable Encounter HQ Keith(FIN) [id number] Date(s): 01/06/18 - 01/06/18 [facility] [address] [place], [place] [address] [phone] Encounter Diagnosis Pain in left hip (Final) - 01/10/18 Discharge Disposition: Home or Self Care Attending Physician: Piyush Reyes MD Vital Signs No data available for [...] Adverse Reactions, Alerts Substance Reaction Severity Status topiramate1 Active Keflex Active NKDA Active 1Data migrated from [employer] on 06/20/15. Originally documented as TOPAMAX. Medications No data available for this section Results No data available for this section Immunizations No data available for this section Procedures Procedure Date Related Diagnosis Body Site Status Epidural steroid injection1 06/16/13 Completed Injection of cervical spinal nerve root using 07/18/12 Completed computed tomography guidance Breast reduction2 Completed Carpal tunnel release3 Completed CEIOL - Cataract extraction and insertion of Completed intraocular lens Cervical spinal fusion by anterior technique Completed Hip replacement4 Completed Ulnar nerve decompression5 Completed 1cervical 2x2 3bilateral 4left 5bilateral Social History Social History Type Response Alcohol Current, Frequency: Daily.1 Smoking Status Former smoker; Exposure to Tobacco Smoke None; Cigarette Smoking Last 365 Days No; Reg Smoking Cessation Counseling No entered on: 02/28/16 11-2 drinks per day Assessment and Plan No data available for this section
[2018-09-28 13:34] VITALS: BP 121/61
== END 2018-09-28 13:41 | disposition home or self-care (01) ==
LOC: FSED 11:50
DX: R53.1 Weakness (principal); I95.2 Hypotension due to drugs; I10 Essential (primary) hypertension; E03.9 Hypothyroidism, unspecified
CPT/HCPCS: 80053; 81003; 99283